=== PATIENT | male | born 1955 | race Caucasian/White ===

== ENCOUNTER 2020-04-21 06:02 | Observation (INO) | payer OTHER ==
[~2020-04-21] VITALS: Ht 177.8 cm; Wt 93.8 kg
--- NOTE | 2020-04-21 06:13 | NUR ---
PT FROM [place], ARRIVED IN Thursday, STATES THAT WHEN HE LAYED DOWN LAST NIGHT HE BEGAN HAVING SOB AND HAS BEEN UNABLE TO LAY FLAT. STATES THAT HE ALSO HAD CHEST HEAVINESS AND SOB, STATES THAT HE HAS A HISTORY OF [place] AND THAT THIS FEELS THE SAME, 12 LEAD OBTAINED UPON ARRIVAL, NO STEMI REVEALED, SR. STATES THAT HE TAKES PRADAXA AND A STATIN.
[2020-04-21 06:51] LABS: BASOPHILS % (AUTO) 0 % (0-1); EOSINOPHILS % (AUTO) 0 % (1-7); LYMPHOCYTES % (AUTO) 54 % (22-44); MEAN CORPUSCULAR HEMOGLOBIN 30.6 pg (27.5-34.5); MEAN CORPUSCULAR HGB CONC 33.1 g/dL (33.2-36.2); MEAN PLATELET VOLUME 7.6 fL (7.4-10.4); MONOCYTES % (AUTO) 3 % (2-9); NEUTROPHILS % (AUTO) 42 % (42-75); PLATELET COUNT 195 x10^3/uL (130-400); RED BLOOD COUNT 4.54 x10^6/uL (4.38-5.82); RED CELL DISTRIBUTION WIDTH 14.5 % (9.4-14.8)
[2020-04-21] MEDS ORDERED: SODIUM CHLORIDE FLUSH 10ML SYR IVF ONE (07:00)
[2020-04-21] MEDS ORDERED: NITROGLYCERIN SINGLE TAB 0.4 MG SL PRN (07:00)
[2020-04-21] MEDS ORDERED: PLEASE ENTER ALLERGIES MC SCH (07:00)
[2020-04-21] MEDS ORDERED: ASPIRIN 81 MG TABLET CHEW PO ONE (07:00)
[2020-04-21 07:02] LABS: ALANINE AMINOTRANSFERASE 46 U/L (12-78); ALBUMIN 3.9 g/dL (3.4-5.0); CREATININE 1.17 mg/dL (0.7-1.3)
[2020-04-21 07:07] LABS: ALKALINE PHOSPHATASE 81 U/L (45-117); ANION GAP 4 mmol/L (5-15); CHLORIDE 110 mmol/L (98-107); TOTAL PROTEIN 7.3 g/dL (6.4-8.2); TROPONIN I < 0.015 ng/mL (0.000-0.045)
[2020-04-21] MEDS ORDERED: ASPIRIN 81 MG TABLET CHEW ONE (07:10)
[2020-04-21] MEDS ORDERED: NITROGLYCERIN SINGLE TAB 0.4 MG SL ONE (07:10)
[2020-04-21 07:11] LABS: MD SCAN
--- NOTE | 2020-04-21 07:29 | NUR ---
RECEIVED BESIDE REPORT AND CARE WAS ASSUMED. IV ACCESS ESTABLISHED. PT. REMAINS MONITORED AND IS IN A SINUS RHYTHM WITHOUT ECTOPY. PT. IS A & O X 4 WITH A GCS OF 15. PT. STATES CHEST PAIN IS 2/10. PT. WAS MEDICATED WITH NITRO AND ASPIRIN ORDERED. PT.'S CAP REFILL IS BRISK, LESS THAN 3 SECONDS. PULSES ARE +2 THROUGHOUT WITHOUT EDEMA NOTED IN HIS EXTREMITIES. PT. IS ABLE TO BRIGGS WNL. PT.'S LUNGS ARE CTA THROUGHOUT. PT.'S ABD. IS SOFT AND ROUND WITH BS + X 4 QUADS. PT. IS RESTING WITH THE HOB ELEVATED GREATER THAN 30 DEGREES AND BLANKETS ARE IN PLACE FOR WARMTH. SIDERAILS REMAIN UP X 2 WITH THE CALL LIGHT IN REACH. PT. HAS NO CONCERNS AT THIS TIME. DR. GAGNON TO THE BEDSIDE TO DISCUSS THE PLAN OF CARE AND LAB FINDINGS OF A POSITIVE D-DIMER. PT. IS INFORMED THAT A CT SCAN OF HIS CHEST HAS BEEN ORDERED TO EVALUATE FOR A POSSIBLE PE. PT. HAS NO QUESTIONS AT THIS TIME.
--- NOTE | 2020-04-21 09:15 | NUR ---
PT. REMAINS MONITORED. VSS. NO CONCERNS AT THIS TIME. PT.'S IS AT THE BEDSIDE.
[2020-04-21] MEDS ORDERED: ATOR40TA78 PO (09:17)
[2020-04-21] MEDS ORDERED: ASPI-515 PO (09:17)
[2020-04-21] MEDS ORDERED: CLOP75TA52 PO (09:17)
[2020-04-21] MEDS ORDERED: OMNIPAQUE 350 MG/ML, 75ML BOTTLE ONE (10:00)
--- NOTE | 2020-04-21 10:41 | NUR ---
PT. IS RESTING WITH THE CP MONITOR IN PLACE. VSS.
--- NOTE | 2020-04-21 11:30 | NUR ---
NO CHANGES. PT. AND HIS WERE GIVEN WATER.
--- NOTE | 2020-04-21 12:24 | NUR ---
PT. REMAINS MONITORED. PT. VOIDED 400 CC URINE. NO CONCERNS AT THIS TIME. HOSPITALIST AT THE BEDSIDE TO TALK WITH THE PT. CALL LIGHT REMAINS IN REACH.
[2020-04-21] MEDS ORDERED: ACETAMINOPHEN 325 MG TABLET PO PRN (13:00)
[2020-04-21] MEDS ORDERED: LABETALOL 5MG/ML, 20ML IVPush PRN (13:00)
[2020-04-21] MEDS ORDERED: morphine SULFATE 10 MG/ML, 1ML IVPush PRN (13:00)
[2020-04-21] MEDS ORDERED: ONDANSETRON 2MG/ML, 2ML IVPush PRN (13:00)
[2020-04-21] MEDS ORDERED: NITROGLYCERIN 0.4 MG BOTTLE (25 TABS) SL PRN (13:00)
[2020-04-21] MEDS ORDERED: hydrALAzine 20 MG/ML, 1ML IVPush PRN (13:00)
[2020-04-21] MEDS ORDERED: PROMETHAZINE 25 MG/ML, 1ML IM PRN (13:00)
--- NOTE | 2020-04-21 13:08 | NUR ---
REPORT CALLED TO TERRELL RODRIGUEZ. PT. IS READY FOR TRANSPORT.
[2020-04-21 14:01] VITALS: BP 136/88
[2020-04-21 15:31] LABS: TROPONIN I < 0.015 ng/mL (0.000-0.045)
[2020-04-21] MEDS: HEPARIN 5,000 UNITS/ML, 1ML SQ SCH (16:05)
[2020-04-21] MEDS ORDERED: ATORVASTATIN 40 MG TABLET PO SCH (21:00)
[2020-04-21 21:03] VITALS: BP 151/83
[2020-04-21 21:25] LABS: TROPONIN I < 0.015 ng/mL (0.000-0.045)
[2020-04-22] MEDS: HEPARIN 5,000 UNITS/ML, 1ML SQ SCH ×2 (01:25→08:00)
[2020-04-22 01:27] VITALS: BP 136/81
[2020-04-22 03:06] LABS: BASOPHILS % (AUTO) 0 % (0-1); EOSINOPHILS % (AUTO) 1 % (1-7); LYMPHOCYTES % (AUTO) 55 % (22-44); MEAN CORPUSCULAR HGB CONC 33.8 g/dL (33.2-36.2); MONOCYTES % (AUTO) 4 % (2-9); NEUTROPHILS % (AUTO) 40 % (42-75); PLATELET COUNT 176 x10^3/uL (130-400); RED BLOOD COUNT 4.18 x10^6/uL (4.38-5.82); RED CELL DISTRIBUTION WIDTH 14.5 % (9.4-14.8)
[2020-04-22 03:14] LABS: ALANINE AMINOTRANSFERASE 45 U/L (12-78); ALBUMIN 3.5 g/dL (3.4-5.0); ANION GAP 5 mmol/L (5-15); CALCIUM 8.4 mg/dL (8.5-10.1); CHLORIDE 109 mmol/L (98-107)
[2020-04-22 03:18] LABS: ALKALINE PHOSPHATASE 73 U/L (45-117); BILIRUBIN,TOTAL 1.3 mg/dL (0.2-1.0); TOTAL PROTEIN 6.4 g/dL (6.4-8.2); TROPONIN I < 0.015 ng/mL (0.000-0.045)
[2020-04-22 04:20] LABS: MD SCAN
[2020-04-22] MEDS ORDERED: ASPIRIN 325 MG TABLET EC PO SCH (06:00)
[2020-04-22] MEDS ORDERED: CLOPIDOGREL 75 MG TABLET PO SCH (09:00)
[2020-04-22 09:10] VITALS: BP 122/75
[2020-04-22] MEDS ORDERED: NITR0.4T28 SL (11:05)
== END 2020-04-22 13:25 | disposition home or self-care (01) ==
LOC: ED 09:14 → INTOOBSV 09:43 → EDIP 09:43 → 5SO 13:33 → DCLOUNGE 04-22 13:16
PROVIDERS: ADMIT Hospitalist; ATTEND Hospitalist
DX: R07.89 Other chest pain (principal); J94.8 Other specified pleural conditions; D72.829 Elevated white blood cell count, unspecified; I51.89 Other ill-defined heart diseases; I10 Essential (primary) hypertension; I71.2 Thoracic aortic aneurysm, without rupture; I71.4 Abdominal aortic aneurysm, without rupture; I25.10 Atherosclerotic heart disease of native coronary artery without angina pectoris; I25.2 Old myocardial infarction; F17.290 Nicotine dependence, other tobacco product, uncomplicated; Z79.82 Long term (current) use of aspirin; Z79.899 Other long term (current) drug therapy; Z95.5 Presence of coronary angioplasty implant and graft; Z86.79 Personal history of other diseases of the circulatory system
CPT/HCPCS: 36415; 71045; 71275; 80053; 83880; 84484; 85025; 85379; 93005; 93306; 96372; 99285; G0378; J1644; Q9967